=== PATIENT | male | born 1960 | race Caucasian/White ===

== ENCOUNTER 2017-01-27 13:33 | Inpatient (IN) | payer SELFPAY ==
--- NOTE | ~2017-01-27 | HP ---
History And Physical [id number] [place]. [address] NAME: LAYLA FOREMAN : 64 STATUS : ADM IN [facility]#: [id number] AGE: 56 ADM/REG DATE : 01/27/17 MR#: [id number] REPORT SERV DATE: 01/27/17 DICTATED BY: ELVIS AVALOS DATE: 01/27/17 REPORT STATUS : Draft TRANSCRIBED BY: MODL DATE: 01/27/17 DATE OF ADMISSION: 01/27/2017 ADMISSION DIAGNOSIS: Acute myocardial infarction. HISTORY OF PRESENT ILLNESS: Mr. Foreman is a 56-year-old male who presented to the emergency room this afternoon for evaluation of chest discomfort that started approximately at 4 a.m., intermittent, waxing and waning with initial EKG suggestive of evolving inferior wall AZ. He reports feeling normal yesterday evening, he ate a greasy meal, but otherwise felt no different than normal. In the morning, he woke up with a tightness and a pressure in his chest, which reminded him of reflux somewhat of what he has had in the past. In fact, he takes Zantac on a regular basis. The pain/discomfort improved and he went to work. However, it returned in the afternoon and due to some concern that it may be more than reflux, he came to the ER. His EKG showed ST elevations inferiorly. Code STEMI was activated, and I discussed the case briefly with the ER physician. Based on the presentation EKG, we brought the patient to the laboratory machinist. PAST MEDICAL HISTORY: Patient does not have a regular primary care physician. Does not see doctor. Does not have a history of cardiac disease. MEDICATIONS: He takes Zantac for reflux. ALLERGIES: NONE. FAMILY HISTORY: Noncontributory. SOCIAL HISTORY: The patient is . Recently moved to [place] from [place]. Employed as a mechanic and welder. He smokes a pack a day. Does not use alcohol or illicits. REVIEW OF SYSTEMS: Per HPI, otherwise negative. PHYSICAL EXAMINATION: VITALS: Heart rate 80, blood pressure 148/81, respiratory rate 16. GENERAL: Appears comfortable. HEENT: Sclerae anicteric; mucous membranes moist. NECK: No JVD. Thyroid not tender or enlarged CARDIOVASCULAR: Regular rhythm with normal S1/S2. No murmurs, rubs, or gallop. PULMONARY: Lung sauer CTA. ABDOMEN: Soft, nontender, no masses EXTREMITIES: Warm, no edema. NEUROLOGIC: Grossly without deficits SKIN: Multiple tattoos. History And Physical [address] [place]. [address] NAME: LAYLA FOREMAN : 64 STATUS : ADM IN PAT#: [id number] AGE: 56 ADM/REG DATE : 01/27/17 MR#: [id number] REPORT SERV DATE: 01/27/17 DICTATED BY: ELVIS AVALOS DATE: 01/27/17 REPORT STATUS : Draft TRANSCRIBED BY: MODDrake DATE: 01/27/17 LABS: Pending at the time of dictation. EKG 01/27/2017, time 1315, sinus rhythm, rate 80. ST elevations in II, III, aVF approximately 2-[address] depression in leads V1, V2 consistent with acute inferior AZ. No prior EKG for comparison. IMPRESSION/RECOMMENDATIONS: 1. Acute inferior myocardial infarction. 2. Tobacco abuse. 3. History of reflux. We will proceed with cardiac catheterization. I have discussed the risks, benefits, and alternatives, and under these emergent circumstances, we will proceed. Further recommendations pending the results of catheterization. TARA/ODIN Elvis Avalos MD / [id number] CC: Elvis Avalos MD
[2017-01-27 13:40] LABS: BASOPHILS 0.3 %; BASOPHILS ABSOLUTE 0.04 10/3/uL (0.0-0.16); EOSINOPHILS 0.4 %; EOSINOPHILS ABSOLUTE 0.06 10/3/uL (0.0-0.53); ER CBC TAT 0 Hrs 05 Mins; HEMATOCRIT 43.8 % (40.0-51.0); HEMOGLOBIN 14.9 g/dL (13.6-17.8); IMMATURE GRANULOCYTES 0.3 %; IMMATURE GRANULOCYTES ABSOLUTE 0.05 10/3/uL (0.0-0.11); LYMPHOCYTES 13.1 %; LYMPHOCYTES ABSOLUTE 1.89 10/3/uL (0.67-4.30); MEAN CORPUSCULAR HEMOGLOB 28.3 pg (26.0-34.0); MEAN CORPUSCULAR VOLUME 83.3 fL (80-100); MEAN PLATELET VOLUME 9.8 fL (9.2-13.0); MONOCYTES ABSOLUTE 0.72 10/3/uL (0.21-1.20); NEUTROPHILS 80.9 %; NEUTROPHILS ABSOLUTE 11.65 10/3/uL (2.02-8.40); PLATELET COUNT 219 10/3/uL (150-400); RBC DISTRIBUTION WIDTH 13.8 % (12.0-16.0); RED CELL COUNT 5.26 10/6/uL (4.7-6.1); WHITE BLOOD CELLS 14.4 10/3/uL (4.5-10.5)
[2017-01-27 13:43] LABS: MANUAL DIFF NO %
[2017-01-27 13:47] LABS: INTERNATIONAL NORMAL RATI 1.1 UNITS (-); PROTIME (NOT ORD) 14.1 SEC (12.0-14.5)
[2017-01-27 13:48] LABS: PARTIAL THROMBO TIME 34.6 SEC (22.5-37.2)
[2017-01-27 13:56] LABS: BUN (BLOOD UREA NITROGEN) 14 MG/DL (6-23); CALCIUM, SERUM 8.8 MG/DL (8.5-10.4); CHLORIDE, SERUM 105 MMOL/L (96-112); CO2 (CARBON DIOXIDE) 26 MMOL/L (24-34); CREATININE 1.08 MG/DL (0.70-1.30); GFR AFRICAN AMERICAN 90 ML/MIN (>=60); GFR NON AFRICAN AMERICAN 77 ML/MIN (>=60); GLUCOSE, SERUM 109 MG/DL (60-99); POTASSIUM, SERUM 4.2 MMOL/L (3.5-5.3); SODIUM, SERUM 140 MMOL/L (135-148)
[2017-01-27 13:57] LABS: CHEST PAIN PROFILE TAT 0 Hrs 22 Mins; TROPONIN I 0.35 NG/ML (<0.05)
[2017-01-27 15:45] LABS: CK-MB 7.6 NG/ML; CPK 186 U/L (0-200)
[2017-01-27 15:48] LABS: CKMB INDEX (NOT ORD) 4.1
[2017-01-27] MEDS ORDERED: ZANTAC 150 PO (16:12)
[2017-01-27 22:26] LABS: CK-MB 284.1 NG/ML; CKMB INDEX (NOT ORD) 10.4
[2017-01-28 06:01] LABS: BASOPHILS 0.2 %; BASOPHILS ABSOLUTE 0.04 10/3/uL (0.0-0.16); EOSINOPHILS 1.2 %; EOSINOPHILS ABSOLUTE 0.22 10/3/uL (0.0-0.53); HEMATOCRIT 44.2 % (40.0-51.0); HEMOGLOBIN 15.2 g/dL (13.6-17.8); IMMATURE GRANULOCYTES 0.2 %; IMMATURE GRANULOCYTES ABSOLUTE 0.04 10/3/uL (0.0-0.11); LYMPHOCYTES 12.9 %; LYMPHOCYTES ABSOLUTE 2.35 10/3/uL (0.67-4.30); MEAN CORPUS HGB CONC 34.4 g/dL (32.0-36.0); MEAN CORPUSCULAR HEMOGLOB 28.6 pg (26.0-34.0); MEAN CORPUSCULAR VOLUME 83.2 fL (80-100); MEAN PLATELET VOLUME 10.4 fL (9.2-13.0); MONOCYTES 7.2 %; MONOCYTES ABSOLUTE 1.31 10/3/uL (0.21-1.20); NEUTROPHILS 78.3 %; NEUTROPHILS ABSOLUTE 14.23 10/3/uL (2.02-8.40); PLATELET COUNT 220 10/3/uL (150-400); RBC DISTRIBUTION WIDTH 14.2 % (12.0-16.0); RED CELL COUNT 5.31 10/6/uL (4.7-6.1); WHITE BLOOD CELLS 18.2 10/3/uL (4.5-10.5)
[2017-01-28 06:02] LABS: MANUAL DIFF NO %
[2017-01-28 07:18] LABS: BUN (BLOOD UREA NITROGEN) 12 MG/DL (6-23); CALCIUM, SERUM 8.8 MG/DL (8.5-10.4); CHLORIDE, SERUM 107 MMOL/L (96-112); CHOLESTEROL 159 MG/DL (< 200); CK-MB 148.2 NG/ML; CO2 (CARBON DIOXIDE) 24 MMOL/L (24-34); CPK 1790 U/L (0-200); CREATININE 1.09 MG/DL (0.70-1.30); GFR AFRICAN AMERICAN 89 ML/MIN (>=60); GFR NON AFRICAN AMERICAN 77 ML/MIN (>=60); GLUCOSE, SERUM 140 MG/DL (60-99); HDL CHOLESTEROL 40 MG/DL (> 39); LDL CHOLESTEROL 102 MG/DL (< 130); NON-HDL CHOLESTEROL 119 MG/DL (< 160); POTASSIUM, SERUM 4.2 MMOL/L (3.5-5.3); SODIUM, SERUM 139 MMOL/L (135-148); TRIGLYCERIDE 85 MG/DL (< 150)
[2017-01-28 07:19] LABS: CKMB INDEX (NOT ORD) 8.3
[2017-01-29] MEDS ORDERED: LIPITOR80 MG PO (08:44)
[2017-01-29] MEDS ORDERED: COREG6 PO (08:44)
[2017-01-29] MEDS ORDERED: PRIN5 PO (08:44)
[2017-01-29] MEDS ORDERED: BRILINTA90 MG PO (08:45)
[2017-01-29] MEDS ORDERED: ASAB PO (08:45)
[2017-01-29] MEDS ORDERED: PLAVIX300 MG PO (08:46)
[2017-01-29] MEDS ORDERED: PLAVIX PO (08:47)
[2017-01-29 08:54] LABS: BASOPHILS 0.2 %; BASOPHILS ABSOLUTE 0.03 10/3/uL (0.0-0.16); EOSINOPHILS 2.2 %; EOSINOPHILS ABSOLUTE 0.31 10/3/uL (0.0-0.53); HEMATOCRIT 45.6 % (40.0-51.0); HEMOGLOBIN 15.2 g/dL (13.6-17.8); IMMATURE GRANULOCYTES 0.3 %; IMMATURE GRANULOCYTES ABSOLUTE 0.04 10/3/uL (0.0-0.11); LYMPHOCYTES 18.1 %; LYMPHOCYTES ABSOLUTE 2.57 10/3/uL (0.67-4.30); MANUAL DIFF NO %; MEAN CORPUS HGB CONC 33.3 g/dL (32.0-36.0); MEAN CORPUSCULAR HEMOGLOB 28.4 pg (26.0-34.0); MEAN CORPUSCULAR VOLUME 85.1 fL (80-100); MEAN PLATELET VOLUME 10.1 fL (9.2-13.0); MONOCYTES 7.5 %; MONOCYTES ABSOLUTE 1.06 10/3/uL (0.21-1.20); NEUTROPHILS 71.7 %; NEUTROPHILS ABSOLUTE 10.18 10/3/uL (2.02-8.40); PLATELET COUNT 215 10/3/uL (150-400); RBC DISTRIBUTION WIDTH 14.1 % (12.0-16.0); RED CELL COUNT 5.36 10/6/uL (4.7-6.1); WHITE BLOOD CELLS 14.2 10/3/uL (4.5-10.5)
[2017-01-29 09:04] LABS: BUN (BLOOD UREA NITROGEN) 22 MG/DL (6-23); CHLORIDE, SERUM 107 MMOL/L (96-112); CO2 (CARBON DIOXIDE) 24 MMOL/L (24-34); CREATININE 1.21 MG/DL (0.70-1.30); GFR AFRICAN AMERICAN 78 ML/MIN (>=60); GFR NON AFRICAN AMERICAN 67 ML/MIN (>=60); GLUCOSE, SERUM 106 MG/DL (60-99); POTASSIUM, SERUM 4.3 MMOL/L (3.5-5.3); SODIUM, SERUM 139 MMOL/L (135-148)
== END 2017-01-29 12:23 | disposition home or self-care (01) | DRG 247 ==
LOC: CORLMH 13:33 → SSU2 13:37 → CCU 14:39 → 7NO 01-28 11:14
PROVIDERS: Emergency Medicine; Internal Medicine Cardiovascular Disease
PROC: 027034Z Dilation of Coronary Artery, One Artery with Drug-eluting Intraluminal Device, Percutaneous Approach (ICD-10-PCS; principal; 2017-01-27)
PROC: 4A023N7 Measurement of Cardiac Sampling and Pressure, Left Heart, Percutaneous Approach (ICD-10-PCS; 2017-01-27)
PROC: B2111ZZ Fluoroscopy of Multiple Coronary Arteries using Low Osmolar Contrast (ICD-10-PCS; 2017-01-27)
PROC: B2151ZZ Fluoroscopy of Left Heart using Low Osmolar Contrast (ICD-10-PCS; 2017-01-27)
DX: I21.19 ST elevation (STEMI) myocardial infarction involving other coronary artery of inferior wall (principal); F17.210 Nicotine dependence, cigarettes, uncomplicated; I25.10 Atherosclerotic heart disease of native coronary artery without angina pectoris; K21.9 Gastro-esophageal reflux disease without esophagitis
CPT/HCPCS: 80048; 80061; 82550; 82553; 82565; 83735; 84484; 85025; 85610; 85730; 87641; 93005; 93306; 93458; 99152; 99153; 99285; A9270-GY; C1713; C1725; C1760; C1769; C1874; C9606; J0583; J2250; J3010; Q9967